=== PATIENT | female | born 1960 | race Caucasian/White ===

== ENCOUNTER 2016-07-16 16:36 | Emergency (ER) | payer MEDICARE, OTHER ==
[~2016-07-16 16:36] MED LIST: ALBUTEROL SULF8.5 GM INH; AMITRIPTYLINE150 MG PO; AZITHROMYCIN500 MG PO; CEFDINIR300 MG PO; FEROSUL325 MG PO; FLONASE ALLER15.8 ML; MEDROL4 M1 PO; NEURONTIN600 MG PO; NEXIUM40 MG PO; NITROSTAT0.4 MG SL; SINGULAIR10 MG PO; TUSSIONEX5 ML PO
[2016-07-16 18:40] LABS: BASOPHIL 0.3 % (0-2); EOSINOPHIL 0.1 % (0-5); HCT 40.9 % (37.0-47.0); HGB 13.2 g/dl (12.5-16.0); LYMPHOCYTE 3.5 % (15-48); MCHC 32.3 g/dL (32.0-36.0); MONOCYTE 5.1 % (0-12); PLT 317 K/uL (150-400); RBC 4.26 M/uL (4.20-5.40); RDW 13.1 % (11.5-14.0); WBC 10.5 K/uL (4.0-10.5)
[2016-07-16 18:57] LABS: POTASSIUM 3.9 mmol/L (3.5-5.1)
[2016-07-16 20:09] LABS: CLARITY HAZY (CLEAR); COLOR ORANGE (YELLOW)
[2016-07-16 20:17] LABS: BACTERIA 2+
[2016-07-16 20:19] LABS: AMPHETAMINES NEGATIVE (NEGATIVE); BARBITURATES NEGATIVE (NEGATIVE); BENZODIAZEPINES NEGATIVE (NEGATIVE); COCAINE NEGATIVE (NEGATIVE); MARIJUANA (THC) NEGATIVE (NEGATIVE); METHADONE NEGATIVE (NEGATIVE); TRICYCLIC ANTIDEPRESSANT POSITIVE (NEGATIVE)
[2016-07-16 22:01] LABS: TROPONIN T < 0.010 ng/mL
== END 2016-07-16 23:08 | disposition home or self-care (01) ==
LOC: FER 16:36
PROVIDERS: Nurse Practitioner Family
DX: R07.89 Other chest pain (principal); N30.00 Acute cystitis without hematuria; M25.522 Pain in left elbow; R51 Headache; R06.02 Shortness of breath; K21.9 Gastro-esophageal reflux disease without esophagitis; H54.8 Legal blindness, as defined in USA; F17.299 Nicotine dependence, other tobacco product, with unspecified nicotine-induced disorders; Z79.899 Other long term (current) drug therapy; Z98.890 Other specified postprocedural states
CPT/HCPCS: 36415; 71020; 73080; 80048; 80305; 81001; 82550; 82553; 84484; 85025; 93005; J1885

== ENCOUNTER 2016-08-03 20:30 | Emergency (ER) | payer MEDICARE, OTHER ==
[2016-08-03 21:21] LABS: BASOPHIL 0.4 % (0-2); EOSINOPHIL 0.2 % (0-5); HCT 36.5 % (37.0-47.0); HGB 11.8 g/dl (12.5-16.0); LYMPHOCYTE 24.6 % (15-48); MCHC 32.3 g/dL (32.0-36.0); MCV 95.8 fL (78.0-100.0); MONOCYTE 12.6 % (0-12); MPV 8.2 fL (6.0-9.5); NEUTROPHIL 62.2 % (41-80); PLT 399 K/uL (150-400); RBC 3.81 M/uL (4.20-5.40); RDW 13.2 % (11.5-14.0); WBC 10.1 K/uL (4.0-10.5)
[2016-08-03 21:26] LABS: INR 0.91 (0.9-1.2); PROTHROMBIN TIME 11.9 SECONDS (11.7-14.0); PTT 23.5 SECONDS (23.2-31.4)
[2016-08-03 21:32] LABS: ALBUMIN 4.3 g/dL (3.5-5.0); BILIRUBIN - TOTAL 0.2 mg/dL (0.1-1.0); CREATININE 0.8 mg/dL (0.5-1.0); GLOBULIN (CALCULATION) 2.3 g/dL (2.2-4.2); POTASSIUM 3.9 mmol/L (3.5-5.1); TOTAL PROTEIN 6.6 g/dL (6.4-8.3)
== END 2016-08-04 00:08 | disposition home or self-care (01) ==
LOC: FER 20:30
PROVIDERS: Emergency Medicine
DX: R07.89 Other chest pain (principal); R06.02 Shortness of breath; R05 Cough; I25.810 Atherosclerosis of coronary artery bypass graft(s) without angina pectoris; I11.9 Hypertensive heart disease without heart failure; E78.5 Hyperlipidemia, unspecified; F17.229 Nicotine dependence, chewing tobacco, with unspecified nicotine-induced disorders; Z79.82 Long term (current) use of aspirin; Z79.899 Other long term (current) drug therapy; Z95.5 Presence of coronary angioplasty implant and graft
CPT/HCPCS: 36415; 71010; 80053; 84484; 85025; 85379; 85610; 85730; 93005; J1885; J2270

== ENCOUNTER → 2016-10-02 | Day surgery (SDC) | payer MEDICARE, OTHER ==
[~2016-10-02] VITALS: Ht 165.1 cm; Wt 75.9 kg
[2016-10-02 09:00] LABS: HCT 36.5 % (37.0-47.0); MCH 30.8 pg (25.0-31.0); MCHC 32.9 g/dL (32.0-36.0); MCV 93.8 fL (78.0-100.0); MPV 8.1 fL (6.0-9.5); RBC 3.89 M/uL (4.20-5.40); WBC 7.8 K/uL (4.0-10.5)
[2016-10-02 09:11] LABS: BILIRUBIN - TOTAL 0.2 mg/dL (0.1-1.0); CREATININE 0.8 mg/dL (0.5-1.0); GLOBULIN (CALCULATION) 2.6 g/dL (2.2-4.2); POTASSIUM 4.8 mmol/L (3.5-5.1); TOTAL PROTEIN 6.6 g/dL (6.4-8.3)
== END | disposition home or self-care (01) ==
LOC: FAS 08:29
PROVIDERS: Surgery
PROC: 0DB58ZZ Excision of Esophagus, Via Natural or Artificial Opening Endoscopic (ICD-10-PCS; principal; 2016-10-02 09:00)
DX: Z01.818 Encounter for other preprocedural examination (principal); R07.9 Chest pain, unspecified
CPT/HCPCS: 36415; 80053; 88305; 88312; J2704